=== PATIENT | male | born 1950 | race Two or more races ===

== ENCOUNTER 2019-06-28 21:57 | Emergency (ER) | payer SELFPAY ==
[~2019-06-28] VITALS: Ht 172.7 cm; Wt 65.0 kg
[2019-06-28] MEDS ORDERED: OCTREOTIDE ACETATE 50 MCG/ML 1ML IV STA (23:00)
[2019-06-28] MEDS ORDERED: SODIUM CHLORIDE 0.9% 1,000 ML IV ONE (23:00)
[2019-06-28] MEDS ORDERED: FAMOTIDINE 20MG/2ML VIAL IV STA (23:00)
[2019-06-28 23:14] LABS: BASOPHILS % 0.6 % (0.0-2.0); EOSINOPHILS % 0.9 % (0.0-5.0); HEMATOCRIT. 41.9 % (42.0-52.0); HEMOGLOBIN. 14.1 g/dL (14.0-18.0); MEAN CORPUSCULAR HEMOGLOBIN 33.5 pg (28.0-32.0); MEAN CORPUSCULAR VOLUME 99.5 fL (80.0-94.0); MEAN PLATELET VOLUME 8.2 fl (7.4-10.4); MONOCYTES % 8.7 % (2.0-8.0); NEUTROPHILS % 43.8 % (40.0-76.0); PLATELET 115 x1000/uL (130-400); RED BLOOD CELL COUNT 4.21 mill/uL (4.7-6.1); RED CELL DISTRIBUTION WIDTH 18.3 % (11.6-14.6)
[2019-06-28 23:16] LABS: CHLORIDE 107 mEq/L (98-107)
[2019-06-28 23:20] LABS: PARTIAL THROMBOPLASTIN TIME 27.1 sec (23.4-31.0); PROTHROMBIN TIME 10.4 sec (9.6-11.0)
[2019-06-29 00:07] LABS: CLARITY URINE CLEAR (CLEAR); COLOR URINE YELLOW (YELLOW); KETONES URINE NEGATIVE (NEGATIVE); LEUKOCYTE ESTERASE URINE NEGATIVE (NEGATIVE); NITRITE URINE NEGATIVE (NEGATIVE); OCCULT BLOOD URINE NEGATIVE (NEGATIVE); PH URINE 7.5 (4.5-8.0); PROTEIN URINE NEGATIVE (NEGATIVE); SPECIFIC GRAVITY URINE 1.013 (1.005-1.030)
[2019-06-29 06:47] VITALS: BP 152/76
== END 2019-06-29 07:16 | disposition home or self-care (01) ==
LOC: ER 21:57
DX: F10.20 Alcohol dependence, uncomplicated (principal); Y90.0 Blood alcohol level of less than 20 mg/100 ml
CPT/HCPCS: 36415; 71045; 80053; 80320; 81003; 82140; 83690; 85025; 85610; 85730; 86850; 86900; 86901; 96374; 96375; 99285; J2354; J3490; J7030; G0480